=== PATIENT | female | born 1930 | race Hispanic/Latino ===

== ENCOUNTER 2017-04-11 09:50 | Inpatient (IN) | payer MEDICARE, OTHER ==
[2017-04-11 09:50] VITALS: BMI 28.5
--- NOTE | 2017-04-11 10:55 | ED PDOC ---
HPI: Psych/Substance Abuse Time Seen by Provider: 04/11/17 10:40 Chief Complaint (Nursing): Psychiatric Evaluation Chief Complaint (Provider): crisis eval History Per: Patient Additional Complaint(s): 86-year-old female with history of anxiety and depression presents for crisis evaluation. Patient states she has been increasingly depressed and has not been taking her psychiatric meds. Patient also has not slept in several days in his extremity tired. She denies any chest pain or shortness of breath, no fever or chills. Patient arrives with her [id number] and son and they confirmed the patient has been noncompliant with meds as well as depressed. Patient sees Jorge Luis Campbell for psychiatric care and he recommended that patient come to ED. Patient denies suicidal or homicidal ideation, she denies auditory or visual hallucinations. Past Medical History Reviewed: Historical Data, Nursing Documentation, Vital Signs Vital Signs: Last Vital Signs Temp 97.4 F L 04/11/17 10:15 Pulse 76 04/11/17 10:15 Resp 20 04/11/17 10:15 BP 111/53 L 04/11/17 10:15 Pulse Ox 95 04/11/17 10:15 - Medical History PMH: Dementia, Depression, HTN, Hypercholesterolemia, Parkinson's Disease, Peripheral Edema, Pulmonary Embolism, Rheumatoid Arthritis - Surgical History Surgical History: Cholecystectomy - Family History Family History: States: No Known Family Hx - Living Arrangements Living Arrangements: With Family - Social History Current smoker - smoking cessation education provided: No Alcohol: None Drugs: Denies - Home Medications Home Medications: Ambulatory Orders Medication Instructions Recorded Apixaban [Eliquis] 5 mg PO Q12H 04/11/17 Atorvastatin [Lipitor] 10 mg PO DAILY 04/11/17 Carbidopa/Levodopa [Sinemet 1 tab PO TID 04/11/17 10] Diltiazem HCl [Diltiazem ER] 240 mg PO DAILY 04/11/17 Fenofibrate [Tricor] 48 mg PO DAILY 04/11/17 Linagliptin [Tradjenta] 5 mg PO DAILY 04/11/17 MetFORMIN [glucoPHAGE] 500 mg PO BID 04/11/17 Metoprolol Tartrate [Lopressor] 50 mg PO BID 04/11/17 Nateglinide [Starlix] 60 mg PO TID 04/11/17 Olanzapine [Zyprexa] 2.5 mg PO HS 04/11/17 Pantoprazole Sodium [Protonix] 40 mg PO DAILY 04/11/17 Travoprost [Travatan Z] 1 drop EACHEYE HS 04/11/17 - Allergies Allergies/Adverse Reactions: Allergies Allergy/AdvReac Type Severity Reaction Status Date / Time Penicillins Allergy RASH Verified 10/05/16 17:56 codeine AdvReac FATIGUE Verified 10/05/16 17:56 PERCOCET AdvReac FATIGUE Uncoded 10/06/16 10:35 Review of Systems ROS Statement: Except As Marked, All Systems Reviewed And Found Negative Constitutional: Positive for: Other (fatigue). Negative for: Fever Cardiovascular: Negative for: Chest Pain Respiratory: Negative for: Cough Psych: Positive for: Depression. Negative for: Suicidal ideation Physical Exam - Reviewed Nursing Documentation Reviewed: Yes Vital Signs Reviewed: Yes - Physical Exam Appears: Positive for: Well, Non-toxic, No Acute Distress Skin: Negative for: Rash Eye Exam: Positive for: Normal appearance Cardiovascular/Chest: Positive for: Regular Rate, Rhythm Respiratory: Positive for: Normal Breath Sounds Gastrointestinal/Abdominal: Positive for: Soft. Negative for: Tenderness, Distended, Guarding Back: Negative for: L CVA Tenderness, R CVA Tenderness Extremity: Positive for: Normal ROM Neurologic/Psych: Positive for: Alert, Oriented, Mood/Affect (flat) - Laboratory Results Result Diagrams: 04/11/17 11:45 04/11/17 11:45 - ECG Interpretation Of ECG: Normal sinus rhythm 68 bpm, no acute changes, reviewed by PA immediately attending. O2 Sat by Pulse Oximetry: 95 Pulse Ox Interpretation: Normal - Other Rad CXR X-Ray: Interpreted by Me, Viewed By Me X-Ray Interpretation: no acute finding Medical Decision Making Medical Decision Makin86 year old female with depression Plan: CBC CMP UA CXR EKG BAL Crisis eval As per crisis counselor and psychiatrist oncology research rn Dr. Romero, patient does meet criteria for admission. Patient is aware of and agrees with admission. Patient has urinary tract infection, initial dose of Macrobid 100 mg was ordered along with 100 mg twice a day order. Patient is admitted. Patient is medically stable for psychiatric admission. Disposition - Clinical Impression Clinical Impression: Depression - Patient ED Disposition Is Patient to be Admitted: Yes - Disposition Disposition Time: 16:11 Condition: FAIR - Pt Status Changed To: Hospital Disposition Of: Inpatient - Admit Certification Admit to Inpatient:: After my assessment, the patient will require hospitalization for at least two midnights. This is because of the severity of symptoms shown, intensity of services needed, and/or the medical risk in this patient being treated as an outpatient. Results - Lab Results Lab Results: 04/11/17 04/11/17 04/11/17 13:00 13:00 11:45 WBC 9.4 RBC 4.61 Hgb 13.2 Hct 39.0 MCV 84.7 MCH 28.6 MCHC 33.7 RDW 13.6 Plt Count 246 MPV 9.0 Neut % (Auto) 75.9 H Lymph % (Auto) 16.0 L [place] % (Auto) 6.8 Eos % (Auto) 0.5 Baso % (Auto) 0.8 Neut # 7.1 H Lymph # 1.5 [place] # 0.6 Eos # 0.0 Baso # 0.1 Sodium Potassium Chloride Carbon Dioxide Anion Gap BUN Creatinine Est GFR ( Amer) Est GFR (Non-Af Amer) Random Glucose Calcium Total Bilirubin AST ALT Alkaline Phosphatase Total Protein Albumin Globulin Albumin/Globulin Ratio Urine Color Yellow Urine Clarity Cloudy Urine pH 5.0 Ur Specific [place] 1.023 Urine Protein Negative Urine Glucose (UA) 50 Urine Ketones Trace Urine Blood Negative Urine Nitrate Negative Urine Bilirubin Negative Urine Urobilinogen 0.2-1.0 Ur Leukocyte Esterase Mod Urine RBC (Auto) 4 H Urine Microscopic WBC 11 H Ur Squamous Epith Cells 8 H Amorphous Sediment Rare H Urine Bacteria Many H Hyaline Casts 6-10 H Urine Opiates Screen Positive H Urine Methadone Screen Negative Ur Barbiturates Screen Negative Ur Phencyclidine Scrn Negative Ur Amphetamines Screen Negative U Benzodiazepines Scrn Negative U Oth Cocaine Metabols Negative U Cannabinoids Screen Negative Alcohol, Quantitative 04/11/17 11:45 WBC RBC Hgb Hct MCV MCH MCHC RDW Plt Count MPV Neut % (Auto) Lymph % (Auto) [place] % (Auto) Eos % (Auto) Baso % (Auto) Neut # Lymph # [place] # Eos # Baso # Sodium 143 Potassium 4.4 Chloride 107 Carbon Dioxide 25 Anion Gap 15 BUN 26 H Creatinine 1.0 Est GFR ( Amer) > 60 Est GFR (Non-Af Amer) 52 Random Glucose 144 H Calcium 10.3 H Total Bilirubin 0.5 AST 18 ALT 23 Alkaline Phosphatase 55 Total Protein 6.7 Albumin 3.9 Globulin 2.8 Albumin/Globulin Ratio 1.4 Urine Color Urine Clarity Urine pH Ur Specific [place] Urine Protein Urine Glucose (UA) Urine Ketones Urine Blood Urine Nitrate Urine Bilirubin Urine Urobilinogen Ur Leukocyte Esterase Urine RBC (Auto) Urine Microscopic WBC Ur Squamous Epith Cells Amorphous Sediment Urine Bacteria Hyaline Casts Urine Opiates Screen Urine Methadone Screen Ur Barbiturates Screen Ur Phencyclidine Scrn Ur Amphetamines Screen U Benzodiazepines Scrn U Oth Cocaine Metabols U Cannabinoids Screen Alcohol, Quantitative < 10
[2017-04-11 11:53] LABS: BASO # 0.1 K/uL (0.0-0.2); BASO % 0.8 % (0.0-2.0); EOS % 0.5 % (0.0-4.0); HEMOGLOBIN 13.2 g/dL (12.0-16.0); LYMPH # 1.5 K/uL (1.0-4.3); MEAN CELL VOLUME 84.7 fl (81.0-99.0); MEAN CORPUSCULAR HEMOGLOBIN 28.6 pg (27.0-31.0); MEAN CORPUSCULAR HGB CONC 33.7 g/dL (33.0-37.0); MONO # 0.6 K/uL (0.0-0.8); MONO % 6.8 % (0.0-10.0); NEUT # 7.1 K/uL (1.8-7.0); NEUT % 75.9 % (50.0-75.0); NRBC % 0.3 % (0.0-0.0); RBC 4.61 Mil/uL (3.80-5.20); RED CELL DISTRIBUTION WIDTH 13.6 % (11.5-14.5); WHITE BLOOD COUNT 9.4 K/uL (4.8-10.8)
[2017-04-11 12:22] LABS: ALB/GLOB RATIO 1.4 (1.0-2.1); ALBUMIN 3.9 g/dL (3.5-5.0); ALT/SGPT 23 U/L (9-52); AST/SGOT 18 U/L (14-36); CALCIUM 10.3 mg/dL (8.4-10.2); GFR AFRICAN-AMERICAN > 60; GFR NON-AFRICAN AMERICAN 52
[2017-04-11 12:34] LABS: BLOOD UREA NITROGEN 26 mg/dl (7-17)
--- NOTE | 2017-04-11 12:49 | RAD ---
HISTORY: clearance COMPARISON: 07/27/2019 50 FINDINGS: LUNGS: No active pulmonary disease. PLEURA: No significant pleural effusion identified, no pneumothorax apparent. CARDIOVASCULAR: Normal. OSSEOUS STRUCTURES: No significant abnormalities. VISUALIZED UPPER ABDOMEN: Normal. OTHER FINDINGS: None. IMPRESSION: No active disease.
[2017-04-11 13:21] LABS: SQUAMOUS EPITHIAL 8 /hpf (0-5); URINE AMORPHOUS SEDIMENT RARE /ul (<OCC); URINE BACTERIA MANY (<OCC); URINE BILIRUBIN NEGATIVE (NEGATIVE); URINE BLOOD NEGATIVE (NEGATIVE); URINE CLARITY CLOUDY (Clear); URINE COLOR YELLOW (YELLOW); URINE GLUCOSE (UA) 50 mg/dL (Normal); URINE LEUKOCYTE ESTERASE MOD Leu/uL (Negative); URINE NITRATE NEGATIVE (NEGATIVE); URINE PROTEIN NEGATIVE (NEGATIVE); URINE UROBILINOGEN 0.2-1.0 mg/dL (0.2-1.0)
[2017-04-11 13:37] LABS: PHENCYCLIDINE, UR NEGATIVE (NEGATIVE)
[2017-04-11] MEDS ORDERED: Magnesium Hydroxide Susp 30 ml UD PO PRN (13:37)
[2017-04-11] MEDS ORDERED: Alum-Mag Hydrox-Simethicone Susp (30 mL) PO PRN (13:37)
[2017-04-11] MEDS ORDERED: Bismuth Subsalicylate 262 mg/15 ml Sus (240 ml) PO PRN (13:37)
[2017-04-11 13:40] LABS: BARBITURATES, UR NEGATIVE (NEGATIVE); BENZODIAZEPINES, UR NEGATIVE (NEGATIVE); OPIATES, UR POSITIVE (NEGATIVE)
[2017-04-11 16:12] VITALS: O2SAT 95
--- NOTE | 2017-04-11 16:49 | PCM.BM ---
Treatment Plan Problems - Problems identified on initial assessmt Problem 1 Date Initiated: 04/11/17 Time Initiated: 16:48 Assessment reference: NA Hopelessness/Helplessness Date Initiated: 04/11/17 Time Initiated: 16:48 Assessment reference: HP, NA Status: Active Alt Sleep Patterns Date Initiated: 04/11/17 Time Initiated: 16:52 Assessment reference: HP, NA Status: Active Less than Optimal nutrition Date Initiated: 04/11/17 Time Initiated: 16:54 Assessment reference: HP, NA Treatment assets and liabiliti Patient Assests: cooperative, negotiates basic needs Patient Liabilities: medical problems, imparied memory, auditory impairment - Milieu Protocol Maintain good personal hygiene: daily Encourage regular showers, daily Remind patient to perform daily oral care, daily Assist patient to perform ADL's Conduct patient checks and document Observation sheet: Q15 minutes Maintain personal safety: every shift Educate patient to report safety concerns to staff, every shift Monitor environment for contraband/sharps Medication safety: Monitor for expected outcome, potential side effects: every shift, Assess barriers to learning: every shift, Assess readiness for medication education: every shift
--- NOTE | 2017-04-11 17:46 | CARD ---
APPROVED REPORT EKG Measurement Heart [id number] <Conclusion> Normal sinus rhythm Cannot rule out Inferior infarct, age undetermined Abnormal ECG
[2017-04-12] MEDS: Pantoprazole 40 mg EC Tab PO SCH (08:55)
[2017-04-12] MEDS: diltiaZEM 240 mg/24 Hours CD Cap PO SCH (08:56)
[2017-04-12 09:00] LABS: BLOOD UREA NITROGEN 21 mg/dl (7-17); CALCIUM 9.5 mg/dL (8.4-10.2); GFR AFRICAN-AMERICAN > 60; GFR NON-AFRICAN AMERICAN 59; HDL CHOLESTEROL 45 MG/DL (30-70)
[2017-04-12] MEDS ORDERED: DILTIAZEM HCL 240 MG PO SCH (09:00)
[2017-04-12 09:10] LABS: LDL CHOLESTEROL 99 mg/dL (0-129)
[2017-04-12 09:19] LABS: T4 8.81 ug/dl (5.5-11.0)
[2017-04-12 09:37] LABS: FERRITIN 21.1 ng/Ml (11.1-264.0)
--- NOTE | 2017-04-12 12:08 | PCM.PSYCH ---
Initial Psychiatric Evaluation - Initial Psychiatric Evaluation Type of Admission: Voluntary Legal Status: Guardian Chief Complaint (in patient's own words): i am very nervous Patient's Reaction to Hospitalization: pt feels very paranoid History of Present Illness and Precipitating Events: This is a 86 yr old female with long h/o dementia and depression and admitted because pt has been getting worse since meds were changed and pt has been not sleeping,not eating feeling very paranoid and cinfused and describe it like climbing the [place] in the nighttime .Pt has been seen by von coburn [facility] for past several years and was prescribed effexor which was d/c by her PCP because of a medical reason and pt became psychotic and Von coburn who put pt on zyprexa and pt did not feel better and continued to be very depressed,anxious and paranoid and not able to sleep and brought by daughter for admission. Current Medications: Active Medications Generic Name Dose Route Start Last Admin Trade Name Freq PRN Reason Stop Dose Admin Acetaminophen 650 mg 04/11/17 13:37 Tylenol 325mg Tab PO Q4 PRN Pain, moderate (4-7) Al Hydrox/Mg Hydrox/Simethicone 30 ml 04/11/17 13:37 Maalox Plus 30 Ml PO Q4 PRN Dyspepsia Apixaban 2.5 mg 04/11/17 22:00 04/12/17 09:00 Eliquis PO 2.5 mg Q12H SD Administration Protocol Atorvastatin Calcium 10 mg 04/12/17 22:00 Lipitor PO HS SD Bismuth Subsalicylate 524 mg 04/11/17 13:37 Pepto-Bismol PO Q4 PRN Diarrhea Carbidopa/Levodopa 1 tab 04/12/17 09:00 04/12/17 08:53 Sinemet 10/100 PO 1 tab TID SD Administration Diltiazem HCl 240 mg 04/12/17 09:00 04/12/17 08:56 Cardizem Cd PO 240 mg DAILY SD Administration Fenofibrate 48 mg 04/12/17 09:00 04/12/17 08:53 Tricor PO 48 mg DAILY SD Administration Latanoprost 1 drop 04/11/17 22:00 Xalatan Opht OU HS SD Lorazepam 0.5 mg 04/11/17 13:37 Ativan PO 04/25/17 13:38 HS PRN Insomnia Lorazepam 0.5 mg 04/11/17 13:37 04/11/17 21:25 Ativan PO 04/25/17 13:38 0.5 mg Q6 PRN Administration Anixety/Agitation Magnesium Hydroxide 30 ml 04/11/17 13:37 Milk Of Magnesia PO HS PRN Constipation Metformin HCl 500 mg 04/12/17 09:00 04/12/17 08:54 Glucophage PO 500 mg BID SD Administration Metoprolol Tartrate 50 mg 04/12/17 09:00 04/12/17 08:55 Lopressor PO 50 mg BID@0900,2100 SD Administration Nateglinide 60 mg 04/12/17 09:00 04/12/17 11:57 Starlix PO 60 mg TID SD Administration Nitrofurantoin Macrocrystals 100 mg 04/11/17 21:00 04/12/17 09:01 Macrobid PO 100 mg Q12 SD Administration Pantoprazole Sodium 40 mg 04/12/17 09:00 04/12/17 08:55 Protonix Ec Tab PO 40 mg DAILY SD Administration Sitagliptin Phosphate 50 mg 04/12/17 09:00 04/12/17 08:55 Januvia PO 50 mg DAILY SD Administration Past Psychiatric History - Past Psychiatric History Previous Treatment History: None Prior Psychiatric Treatment: pt has been seeing [facility] at the clinic for medication managment Nature of Treatment: for depression History of Abuse: denies History of ETOH/Drug Use: Pt denies History of Family Illness: pt does not know Pertinent Medical Hx (Current Medical&Sleep Prob, Allergies): Allergies Allergy/AdvReac Type Severity Reaction Status Date / Time Penicillins Allergy RASH Verified 04/11/17 16:27 codeine AdvReac FATIGUE Verified 04/11/17 16:27 PERCOCET AdvReac FATIGUE Uncoded 04/11/17 16:27 Apixaban [Eliquis] 5 mg PO Q12H 04/11/17 Atorvastatin [Lipitor] 10 mg PO DAILY 04/11/17 Carbidopa/Levodopa 10/100 [Sinemet 10/100] 1 tab PO TID 04/11/17 Diltiazem HCl [Diltiazem ER] 240 mg PO DAILY 04/11/17 Fenofibrate [Tricor] 48 mg PO DAILY 04/11/17 Linagliptin [Tradjenta] 5 mg PO DAILY 04/11/17 MetFORMIN [glucoPHAGE] 500 mg PO BID 04/11/17 Metoprolol Tartrate [Lopressor] 50 mg PO BID 04/11/17 Nateglinide [Starlix] 60 mg PO TID 04/11/17 Olanzapine [Zyprexa] 2.5 mg PO HS 04/11/17 Pantoprazole Sodium [Protonix] 40 mg PO DAILY 04/11/17 Travoprost [Travatan Z] 1 drop EACHEYE HS 04/11/17 Pt has h/o parkinson's disease,HTN ,diabetes and h/o LI compression fracture Review of Systems - Review of Systems All systems: reviewed and no additional remarkable complaints except Mental Status Examination - Personal Presentation Personal Presentation: Looks stated age - Affect Affect: Constricted - Motor Activity Motor Activity: Other - Reliability in Providing Information Reliability in Providing Information: Poor, due to alteration in thoughts - Speech Speech: Relevant - Mood Mood: Depressed, Anxious - Formal Thought Process Formal Thought Process: Paranoia - Hallucinations/Delusions Delusions: Other - Obsessions/Compulsions Obsessions: No Compulsions: No - Cognitive Functions Orientation: Person, Place, Situation Sensorium: Alert Attention/Concentration: Easily distracted Abstract Thinking: [place] Estimate of Intelligence: Average Judgement: Imparied, as evidence by: Poor judgement - Risk Risk: Diminished functioning - Strength & Assets Inventory Strength & Assets Inventory: Family support DSM 5 DX - DSM 5 DSM 5 Diagnosis: major depression ,severe with psychosis Dementia without behavioral disturbances r/0 parkinson 's dementia - Recommended/Plan of Treatment Treatment Recommendations and Plan of Treatment: Spoke with the pt 's daughter who has agreed to start pt on seroquel 12.5 mg hs to address the depression and psychosis and titrate to stabilize the pt Pt whent stabilized for the psychosis can be tried on cymbalta as an alternative for effexor as she does better on SNRI medical consult to address her meds for parkinson's,DM,HTN
--- NOTE | 2017-04-12 14:23 | PN ---
DATE: 04/12/2017 DAILY PROGRESS NOTE SUBJECTIVE: The patient is seen today, 04/12/2017. She is not in any cardiopulmonary distress. PHYSICAL EXAMINATION: VITAL SIGNS: Blood pressure 128/62, temperature 97.1, respiratory rate 19 and pulse 79. HEENT: Pupils equal, reactive to light. Normal-appearing mucosa of the conjunctivae, oropharyngeal and nasal membrane mucosa. NECK: Supple. No JVD. No carotid bruit. No lymph node. No thyromegaly. CHEST AND LUNGS: Bilateral symmetrical expansion. Good air exchange. No rales. No rhonchi. CARDIOVASCULAR SYSTEM: PMI not localized. S1 and S2. No additional sounds. ABDOMEN: Normoactive bowel sounds. No tenderness. No organomegaly. No masses. EXTREMITIES: No cyanosis. No clubbing. No edema. CENTRAL NERVOUS SYSTEM: Alert, awake, oriented x2. No neurological deficit could be appreciated. ASSESSMENT: Parkinson's disease, paroxysmal atrial fibrillation, hypertension, type 2 diabetes mellitus, hypertriglyceridemia. PLAN: Continue medications. We will order physical therapy. We will follow up with you. Peyman Morgan MD
--- NOTE | 2017-04-12 16:24 | CON ---
DATE: 04/11/2017 INITIAL CONSULTATION HISTORY OF PRESENT ILLNESS: The patient is well known to me, 86-year-old female with history of multiple medical problems, was admitted to Psychiatry floor. Patient was not compliant with her medications. Medical consultation was called for medical followup. Patient denied to have any chest pain, shortness of breath. REVIEW OF SYSTEMS: Other review of system is negative. ALLERGIES: POSITIVE FOR PENICILLIN, CODEINE AND PERCOCET. PAST MEDICAL HISTORY: Hypertension, paroxysmal atrial fibrillation, type 2 diabetes mellitus, hypercholesterolemia, Parkinson's disease, hypertriglyceridemia. SOCIAL HISTORY: No history of smoking, EtOH or substance abuse. FAMILY HISTORY: Noncontributory. MEDICATIONS: As per MAR. PHYSICAL EXAMINATION: GENERAL: Patient is in bed, not in any cardiopulmonary distress at the time of this examination. VITAL SIGNS: Blood pressure was 104/62, temperature 97.2, respiratory rate 18 and pulse 79. HEENT: Pupils equal, reactive to light. Normal-appearing mucosa of the conjunctivae, oropharyngeal and nasal membrane mucosa. NECK: Supple. No JVD, no carotid bruit, no lymph node, no thyromegaly. CHEST AND LUNGS: Bilateral symmetrical expansion. Good air exchange. No rales, no rhonchi. CARDIOVASCULAR SYSTEM: PMI not localized. S1, S2. No additional sounds. ABDOMEN: Normoactive bowel sounds. No tenderness, no organomegaly, no masses. EXTREMITIES: No cyanosis, no clubbing, no edema. CENTRAL NERVOUS SYSTEM: Alert, awake and oriented x2. No neurological deficits could be appreciated. ASSESSMENT: Type 2 diabetes mellitus; hypertension; paroxysmal atrial fibrillation, on Eliquis anticoagulant; hypertriglyceridemia; hypercholesterolemia; Parkinson's disease. PLAN: All patient's home medications were re-ordered and we will also order physical therapy and we will follow up with you during patient's stay in psych floor. Peyman Morgan MD
[2017-04-12] MEDS: Latanoprost 0.005% Opht SOUTION OU SCH (21:14)
[2017-04-13] MEDS: Pantoprazole 40 mg EC Tab PO SCH (08:35)
[2017-04-13] MEDS: diltiaZEM 240 mg/24 Hours CD Cap PO SCH (08:35)
[2017-04-13] MEDS: Latanoprost 0.005% Opht SOUTION OU SCH (21:03)
[2017-04-13 22:23] LABS: FOLATE 17.8 ng/mL
--- NOTE | 2017-04-14 09:45 | PCM.PYCHPN ---
Psychiatric Progress Note - Psychiatric Progress Note Patient seen today, length of contact: Patient evaluated, case discussed with team, chart reviewed Patient Chief Complaint: "I'm depressed." Problems Identified/Issues Discussed: Patient continues to report feeling depressed. She states that she has decreased ability to care for herself and feels lonely at home. No current SI/ HI/AH/VH. We discussed starting Zoloft and increasing the Seroquel. r/b/se reviewed. Medication Change: Yes (Start Zoloft 25 mg PO Daily; increase Seroquel to 25 mg PO HS) Medical Record Reviewed: Yes Consults ordered or reviewed: Medicine consult; Physical Therapy Mental Status Examination - Cognitive Function Orientation: Person, Place, Situation Memory: Impaired Concentration: Poor Association: WNL Fund of Knowledge: Poor Decription of patient's judgement and insights: Fair I/J - Mood Mood: Depressed, Anxious - Affect Affect: Constricted, Depressed - Speech Speech: Appropriate - Formal Thought Process Formal Thought Process: Paranoia Psychotic Thoughts and Behaviors: +Paranoia - Suicidal Ideation Suicidal Ideation: No - Homicidal Ideation Homicidal Ideation: No Goal/Treatment Plan - Goal/Treatment Plan Need for Continued Stay: Remain at risks for inpatient hospitalization, Severe depression anxiety, Discharge may exacerbated symptoms Progress Toward Problem(s) and Goals/Treatment Plan: Major depressive disorder w/ psychotic features; Dementia -Start Zoloft 25 mg PO Daily -Increase Seroquel to 25 mg PO HS -Individual and group therapy -Medicine consult -Psychoeducation -Obtain collateral history from patent's family -Disposition planning Estimated Date of D/C: 04/18/17 - Smoking Cessation Smoking Cessation Initiated: No Reason for not providing: Not indicated
[2017-04-14] MEDS: Pantoprazole 40 mg EC Tab PO SCH (12:09)
[2017-04-14] MEDS: Sodium Chloride 0.9% 1,000 ML IV SCH (13:09)
[2017-04-14] MEDS: Cholestyramine 4 gm/Pkt UD PO PRN (13:53)
[2017-04-14] MEDS: Latanoprost 0.005% Opht SOUTION OU SCH (21:19)
--- NOTE | 2017-04-15 00:28 | PN ---
DATE: SUBJECTIVE: Patient had five loose bowel movements today. PHYSICAL EXAMINATION: VITAL SIGNS: Her blood pressure was 121/60, temperature 97.2, respiratory rate 20, and pulse 84. HEENT: Pupils equal, reactive to light. Normal-appearing mucosa of the conjunctivae, oropharynx, and nasal membrane mucosa. NECK: Supple. No JVD. No carotid bruit. No lymph node. No thyromegaly. CHEST AND LUNGS: Bilateral symmetrical expansion. Good air exchange. No rales, no rhonchi. CARDIOVASCULAR SYSTEM: PMI not localized. S1, S2. No additional sounds. ABDOMEN: Normoactive bowel sounds. No tenderness. No organomegaly. No masses. EXTREMITIES: No cyanosis, no clubbing, no edema. CENTRAL NERVOUS SYSTEM: Alert, awake, oriented x2. No neurological deficit could be appreciated. ASSESSMENT: 1. Diarrhea, rule out colitis versus gastroenteritis. 2. Parkinson's disease. 3. Type 2 diabetes mellitus. 4. Hypertension. PLAN: We will send stool for workup. Start IV fluid. We will start patient Questran 4 g twice a day after collection of the stool. We will hold blood work today. Peyman Morgan MD
[2017-04-15] MEDS: Sodium Chloride 0.9% 1,000 ML IV SCH (01:39)
--- NOTE | 2017-04-15 08:53 | PCM.PYCHPN ---
Psychiatric Progress Note - Psychiatric Progress Note Patient seen today, length of contact: Patient evaluated, case discussed with team, chart reviewed Patient Chief Complaint: "I'm depressed." Problems Identified/Issues Discussed: Patient continues to report feeling depressed. No SI/HI/paranoia/delusions. She denies current adverse effects to medications. Medication Change: No Medical Record Reviewed: Yes Consults ordered or reviewed: Medicine consult; Physical Therapy Mental Status Examination - Cognitive Function Orientation: Person, Place, Situation Memory: Impaired Concentration: Poor Association: WNL Fund of Knowledge: Poor Decription of patient's judgement and insights: Fair I/J - Mood Mood: Depressed - Affect Affect: Depressed - Speech Speech: Appropriate - Formal Thought Process Formal Thought Process: No Impairment Psychotic Thoughts and Behaviors: No AH/VH/paranoia - Suicidal Ideation Suicidal Ideation: No - Homicidal Ideation Homicidal Ideation: No Goal/Treatment Plan - Goal/Treatment Plan Need for Continued Stay: Remain at risks for inpatient hospitalization, Severe depression anxiety, Discharge may exacerbated symptoms Progress Toward Problem(s) and Goals/Treatment Plan: Major depressive disorder w/ psychotic features; Dementia -Continue Zoloft 25 mg PO Daily -Continue Seroquel 25 mg PO HS -Individual and group therapy -Medicine consult -Psychoeducation -Obtain collateral history from patent's family -Disposition planning Estimated Date of D/C: 04/18/17
--- NOTE | 2017-04-15 09:01 | PN ---
DATE: 04/13/2017 PSYCHIATRIC FOLLOWUP PROGRESS NOTE SUBJECTIVE: The patient is an 86-year-old female who has a significant history of depression, admitted because of significant symptoms of paranoid ideation, insomnia, significant depression and has been started on Seroquel 12.5 mg at bedtime and has been doing somewhat better on the medication. She was seen today again with her family member and also her daughter has told me that the patient has been doing better and slept better last night. She denies any delusions or hallucination at this time. She still feels very anxious and nervous, but denies any side effects to the medication. She denies any suicidal or homicidal ideation, plan, or intent. Her insight and judgment still remain limited. She still needs further stabilization of the depression with further titration of the medication. The daughter reports that the reason she was admitted because she stopped taking the medication, which is Zyprexa prescribed by Jorge Luis Campbell and also reports that she was not moving on the medicine as well and now she believes that this medicine may have some move because the patient has Parkinson disease and other medications like Zyprexa and Risperdal are not appropriate because of the side effects of the parkinsonian symptoms; therefore, the patient has been more appropriate taking Seroquel. DIAGNOSTIC IMPRESSION: Major depression, severe with psychotic features. PLAN OF TREATMENT: Discussed with the patient and the daughter the risk, benefits, and rationale to continue Seroquel 12.5 mg at bedtime for now. I will recommend to gradually titrate up the Seroquel to further stabilize the mood, depression, and also any paranoid ideation and psychosis. We will continue to engage the patient in the unit regimen providing some activities and also helping the patient coping with all the stresses in her life and be able to also sleep better at night as well. When the patient is stabilized, the treatment team will discuss further the disposition and management and Dr. Hubbard will discuss further with the patient the further treatment plan and management and disposition. Malcolm Spring MD
[2017-04-15] MEDS: diltiaZEM 240 mg/24 Hours CD Cap PO SCH (13:09)
[2017-04-15] MEDS: Pantoprazole 40 mg EC Tab PO SCH (13:15)
[2017-04-15] MEDS: Latanoprost 0.005% Opht SOUTION OU SCH (21:13)
[2017-04-15] MEDS: Cholestyramine 4 gm/Pkt UD PO PRN (21:48)
--- NOTE | 2017-04-16 01:54 | PN ---
DATE: 04/15/2017 SUBJECTIVE: Patient is seen today, 04/15/2017. She is not having any more diarrhea. PHYSICAL EXAMINATION VITAL SIGNS: Blood pressure is 139/62, temperature 97.8, respiratory rate 18 and pulse 78. HEENT: Pupils equal, reactive to light. Normal appearing mucosa of the conjunctivae, oropharyngeal and nasal membrane mucosa. NECK: Supple. No JVD, no carotid bruit, no lymph node, no thyromegaly. CHEST AND LUNGS: Bilateral symmetrical expansion. Good air exchange. No rales, no rhonchi. CARDIOVASCULAR SYSTEM: PMI not localized. S1 and S2. No additional sounds. ABDOMEN: Normoactive bowel sounds. No tenderness, no organomegaly, no masses. EXTREMITIES: No cyanosis, no clubbing, no edema. CENTRAL NERVOUS SYSTEM: Alert, awake, oriented x2. No neurological deficits could be appreciated. ASSESSMENT: Hypertension, type 2 diabetes mellitus, status post diarrhea, likely gastroenteritis, which resolved within 24 hours, Parkinson disease. PLAN: We will continue intravenous fluids and resume patient's home medications. Continue physical therapy. We will follow up with you. Peyman Morgan MD
--- NOTE | 2017-04-16 08:16 | PCM.PYCHPN ---
Psychiatric Progress Note - Psychiatric Progress Note Patient seen today, length of contact: Patient evaluated, case discussed with team, chart reviewed Patient Chief Complaint: "I'm depressed." Problems Identified/Issues Discussed: Patient reports that her mood is starting to improve. She reports improved appetite. She continues to have constricted affect, but brightens at times. No SI/HI/paranoia/delusions. She denies current adverse effects to medications. Medication Change: No Medical Record Reviewed: Yes Consults ordered or reviewed: Medicine consult; Physical Therapy Mental Status Examination - Cognitive Function Orientation: Person, Place, Situation Memory: Impaired Concentration: Poor Association: WNL Fund of Knowledge: Poor Decription of patient's judgement and insights: Fair I/J - Mood Mood: Depressed - Affect Affect: Constricted - Speech Speech: Appropriate - Formal Thought Process Formal Thought Process: No Impairment Psychotic Thoughts and Behaviors: No AH/VH/paranoia - Suicidal Ideation Suicidal Ideation: No - Homicidal Ideation Homicidal Ideation: No Goal/Treatment Plan - Goal/Treatment Plan Need for Continued Stay: Remain at risks for inpatient hospitalization, Severe depression anxiety, Discharge may exacerbated symptoms Progress Toward Problem(s) and Goals/Treatment Plan: Major depressive disorder w/ psychotic features; Dementia -Continue Zoloft 25 mg PO Daily -Continue Seroquel 25 mg PO HS -Individual and group therapy -Medicine consult -Psychoeducation -Case discussed with patient's daughter -Disposition planning Estimated Date of D/C: 04/18/17 - Smoking Cessation Smoking Cessation Initiated: No Reason for not providing: Not indicated
[2017-04-16] MEDS: Pantoprazole 40 mg EC Tab PO SCH (08:45)
[2017-04-16] MEDS: diltiaZEM 240 mg/24 Hours CD Cap PO SCH (08:45)
[2017-04-16] MEDS: Latanoprost 0.005% Opht SOUTION OU SCH (21:29)
[2017-04-17 05:43] VITALS: RESP 18
--- NOTE | 2017-04-17 08:26 | PCM.PYCHPN ---
Psychiatric Progress Note - Psychiatric Progress Note Patient seen today, length of contact: Patient evaluated, case discussed with team, chart reviewed Patient Chief Complaint: "I'm okay." Problems Identified/Issues Discussed: No significant events overnight. Patient continues to improve clinically. She has brighter affect, improved sleep and no acute paranoia. We discussed likely discharge tomorrow if the patient continues to improve clinically. NO SI/HI. She denies current adverse effects to medications. Medication Change: No Medical Record Reviewed: Yes Consults ordered or reviewed: Medicine consult; Physical Therapy Mental Status Examination - Cognitive Function Orientation: Person, Place, Situation Memory: Impaired Attention: Poor Concentration: Poor Association: WNL Fund of Knowledge: WNL Decription of patient's judgement and insights: Fair I/J - Mood Mood: Depressed - Affect Affect: Broad - Speech Speech: Appropriate - Formal Thought Process Formal Thought Process: No Impairment Psychotic Thoughts and Behaviors: No AH/VH/paranoia - Suicidal Ideation Suicidal Ideation: No - Homicidal Ideation Homicidal Ideation: No Goal/Treatment Plan - Goal/Treatment Plan Need for Continued Stay: Severe depression anxiety Progress Toward Problem(s) and Goals/Treatment Plan: Major depressive disorder w/ psychotic features; Dementia -Continue Zoloft 25 mg PO Daily -Continue Seroquel 25 mg PO HS -Individual and group therapy -Medicine consult -Psychoeducation -Case discussed with patient's daughter -Disposition planning Estimated Date of D/C: 04/18/17
[2017-04-17] MEDS: diltiaZEM 240 mg/24 Hours CD Cap PO SCH (09:56)
[2017-04-17] MEDS: Pantoprazole 40 mg EC Tab PO SCH (09:57)
[2017-04-17] MEDS: Latanoprost 0.005% Opht SOUTION OU SCH (21:07)
--- NOTE | 2017-04-18 00:26 | PN ---
DATE: 04/17/2017 DAILY PROGRESS NOTE SUBJECTIVE: Patient is seen today, 04/17/2017. She is not in any cardiopulmonary distress and there is no more diarrhea. PHYSICAL EXAMINATION: VITAL SIGNS: Blood pressure is 136/77, temperature 97.1, respiratory rate 18 and pulse 83. HEENT: Pupils equal, reactive to light. Normal-appearing mucosa of the conjunctivae, oropharynx, and nasal membrane mucosa. NECK: Supple. No JVD. No carotid bruit. No lymph node. No thyromegaly. CHEST AND LUNGS: Bilateral symmetrical expansion. Good air exchange. No rales, no rhonchi. CARDIOVASCULAR SYSTEM: PMI not localized. S1, S2. No additional sounds. ABDOMEN: Normoactive bowel sounds. No tenderness. No organomegaly. No masses. EXTREMITIES: No cyanosis, no clubbing, no edema. CENTRAL NERVOUS SYSTEM: Alert, awake, oriented x2. No neurological deficit could be appreciated. ASSESSMENT: 1. Hypertension. 2. Type 2 diabetes mellitus. 3. Status post gastroenteritis. 4. Parkinson disease. PLAN: Continue current medications. We will follow with you. [facility] MD Eddie
[2017-04-18 05:56] VITALS: TEMP 97.5
[2017-04-18] MEDS: diltiaZEM 240 mg/24 Hours CD Cap PO SCH (08:56)
[2017-04-18] MEDS: Pantoprazole 40 mg EC Tab PO SCH (09:03)
[2017-04-18 09:04] VITALS: BP 124/53; PULSE 64
--- NOTE | 2017-04-18 09:39 | PCM.PYCHDC ---
Mental Status Examination - Mental Status Examination Orientation: Person, Place, Situation, Time Memory: Impaired Mood: Neutral Affect: Broad Speech: Appropriate Attention: Poor Concentration: Poor Association: WNL Fund of Knowledge: WNL Formal Thought Process: No Impairment Description of patient's judgement and insight: Fair I/J Psychotic Thoughts and Behaviors: No AH/VH/paranoia Suicidal Ideation: No Current Homicidal Ideation?: No Discharge Summary - Discharge Note Reason for Hospitalization: As per initial HPI note: This is a 86 yr old female with long h/o dementia and depression and admitted because pt has been getting worse since meds were changed and pt has been not sleeping,not eating feeling very paranoid and cinfused and describe it like climbing the [place] in the nighttime .Pt has been seen by [facility] for past several years and was prescribed effexor which was d/c by her PCP because of a medical reason and pt became psychotic and [facility] who put pt on zyprexa and pt did not feel better and continued to be very depressed,anxious and paranoid and not able to sleep and brought by daughter for admission. Psychiatric History (includes Medical, Family, Personal Hx): for depression Laboratory Data: Abnormal Lab Results 04/17/17 04/18/17 15:27 05:50 POC Glucose (mg/dL) 117 H 83 Consultations:: List each consultation separately and include: 1. Reason for request. 2. Findings. 3. Follow-up Consultations: Medicine consult; Physical Therapy Summary of Hospital Course include:: 1. Description of specific treatment plan utilized for patients during their course of treatmen. 2. Summarize the time- course for resolution of acute symptoms and/or regressed behaviors. 3. Describe issues identified and worked on during hospitalization. 4. Describe medication utilized. 5. Describe medical problems identified and treated. 6. Reassessment of suicide risk Summary of Hospital Course: Patient was admitted to the geriatric psychiatry unit. She was stabilized on Zoloft 25 mg PO Daily and Seroquel 25 mg PO HS. She reports improvement in mood and no longer reports paranoia. She is psychiatrically stable for discharge with outpatient follow-up. Patient also referred for home health services and home PT. Case discussed with the patient's daughter and psychoeducation required. - Diagnosis (1) Major depressive disorder with psychotic features Current Visit: Yes Status: Chronic (2) Dementia Current Visit: Yes Status: Chronic - Final Diagnosis (DSM 5) Condition upon Discharge: STABLE DSM 5: Major Depressive Disorder w/ Psychotic Features; Dementia Disposition: HOME/ ROUTINE Follow-up Treatment Plan: Major depressive disorder w/ psychotic features; Dementia; patient is psychiatrically stable for discharge with outpatient follow-up. -Continue Zoloft 25 mg PO Daily -Continue Seroquel 25 mg PO HS -Case discussed with patient's daughter Prescriptions/Medication Reconciliation: QUEtiapine [Seroquel] 25 mg PO HS #30 tab Sertraline [Zoloft] 25 mg PO DAILY #30 tab - Smoking Cessation Smoking Cessation Medication prescribed: No Reason for not providing: Not indicated - Antipsychotic Medications Pt discharged on 2 or more routine antipsychotic medications: No
== END 2017-04-18 14:30 | disposition home or self-care (01) | DRG 885 ==
LOC: H.ER 09:50 → H.ERHOLD 13:30 → H.STEP 14:43
PROVIDERS: ADMIT Psychiatry & Neurology Psychiatry; ATTEND Psychiatry & Neurology Psychiatry
PROC: GZHZZZZ Group Psychotherapy (ICD-10-PCS; principal; 2017-04-11)
PROC: GZ51ZZZ Individual Psychotherapy, Behavioral (ICD-10-PCS; 2017-04-11)
DX: F32.3 Major depressive disorder, single episode, severe with psychotic features (principal); G20 Parkinson's disease; I48.0 Paroxysmal atrial fibrillation; K52.9 Noninfective gastroenteritis and colitis, unspecified; I10 Essential (primary) hypertension; E78.1 Pure hyperglyceridemia; M06.9 Rheumatoid arthritis, unspecified; Z79.01 Long term (current) use of anticoagulants; Z79.899 Other long term (current) drug therapy; Z86.711 Personal history of pulmonary embolism; Z91.14 Patient's other noncompliance with medication regimen; Z79.84 Long term (current) use of oral hypoglycemic drugs; R19.7 Diarrhea, unspecified; E11.9 Type 2 diabetes mellitus without complications; E78.00 Pure hypercholesterolemia, unspecified; F03.90 Unspecified dementia, unspecified severity, without behavioral disturbance, psychotic disturbance, mood disturbance, and anxiety